=== PATIENT | female | born 1990 | race Caucasian/White ===

== ENCOUNTER 2017-12-19 13:27 | Inpatient (IN) | payer MEDICAID, OTHER ==
[2017-12-19 14:14] VITALS: BMI 34.3
[2017-12-19 14:40] LABS: SQUAMOUS EPITHIAL 11 /hpf (0-5); URINE BACTERIA OCC (<OCC); URINE BILIRUBIN NEGATIVE (NEGATIVE); URINE BLOOD MODERATE (NEGATIVE); URINE CLARITY CLOUDY (Clear); URINE COLOR AMBER (YELLOW); URINE GLUCOSE (UA) NEG (Normal); URINE HYALINE CAST 0-2 /hpf (0-2); URINE LEUKOCYTE ESTERASE LARGE Leu/uL (Negative); URINE PROTEIN 30 mg/dL (NEGATIVE)
[2017-12-19 14:47] LABS: URINE UROBILINOGEN 0.2 mg/dL (0.2-1.0)
[2017-12-19] MEDS ORDERED: Lactated Ringer's 1,000 ML IV SCH (15:00)
[2017-12-19] MEDS ORDERED: AMPicillin 2 GM in Sodium Chloride 0.9% 100 ML IVPB ONE (15:15)
[2017-12-19] MEDS ORDERED: Magnesium Sulfate 4 gm/100 ml 4 GM/100 ML BAG IV ONE (16:28)
--- NOTE | 2017-12-19 16:45 | OBHP ---
Datetime: 12/19/2017 14:05 IP Adm Impression: , intrauterine ; No Active Labor; Intact Membranes IP Admit Plan: Observation/Evaluation Admit Comment, IP Provider: 27yo IUP at 30w 6d c/o vb after she urinated this morning. Also , she said that she felt less FM this morning. No CTX; no SROM. PNC: Dr Patel - states that she was gong to do 3h GTT but decided not to do it today. She was told 2w ago about abnormal glucola PMH: sleeping issues PSH: gastric bypass/D_C POBGYN: G1 - TOP HPV + PSoH: Denies smoking; ETOH; drugs A: IUP at 30w VB by Hx - no evidence of VB PLAN: check UA; spoke to Dr Patel - check NST Add: 16:30pm...Dr verduzco admitted pt for threatened PTL Pelvic Type - PN: Adequate Extremities - PN: Normal Abdomen - PN: Normal Back - PN: Normal Lungs - PN: Normal Heart - PN: Normal Neurologic - PN: Normal HEENT - PN: Normal General - PN: Normal Membranes, Provider: Intact Comments, ACOG Physical Exam: Pelvic: vagina - white yellow curdy discharge CX closed Pool Provider: Negative IP Hx Assessment: The History has been Reviewed and is Current EGA AdmitDate IP: 30.6 IP Chief Complaint: Vaginal bleeding Dilatation, Provider: 0 Effacement, Provider: 0
[2017-12-19] MEDS: Betamethasone Soluspan 30 mg/5mL Inj Susp IM SCH (17:42)
[2017-12-19] MEDS: Magnesium Sul 40GM/1L SW 40 GM/1,000 ML ML IV ONE (18:14)
[2017-12-19 18:53] LABS: BASO % 0.3 % (0.0-2.0); EOS # 0.1 K/uL (0.0-0.7); EOS % 0.7 % (0.0-4.0); HEMOGLOBIN 10.9 g/dL (12.0-16.0); LYMPH # 2.2 K/uL (1.0-4.3); LYMPH % 21.1 % (20.0-40.0); MEAN CELL VOLUME 97.2 fl (81.0-99.0); MEAN CORPUSCULAR HEMOGLOBIN 32.4 pg (27.0-31.0); MEAN CORPUSCULAR HGB CONC 33.3 g/dL (33.0-37.0); MEAN PLATELET VOLUME 10.6 fl (7.2-11.7); MONO # 0.8 K/uL (0.0-0.8); MONO % 7.7 % (0.0-10.0); NEUT # 7.2 K/uL (1.8-7.0); NEUT % 70.2 % (50.0-75.0); NRBC % 0.1 % (0.0-0.0); RBC 3.38 Mil/uL (3.80-5.20); RED CELL DISTRIBUTION WIDTH 13.1 % (11.5-14.5); WHITE BLOOD COUNT 10.3 K/uL (4.8-10.8)
[2017-12-19] MEDS: AMPicillin 1 GM in Sodium Chloride 0.9% 100 ML IVPB SCH (21:13)
[2017-12-19] MEDS: TERCONAZOLE VAG SCH (21:41)
[2017-12-20 00:19] LABS: ALBUMIN 3.5 g/dL (3.5-5.0); ALT/SGPT 26 U/L (9-52); AST/SGOT 25 U/L (14-36); BILIRUBIN,DIRECT 0.2 mg/ml (0.0-0.4); BLOOD UREA NITROGEN 4 mg/dl (7-17); CALCIUM 8.2 mg/dL (8.4-10.2); GFR NON-AFRICAN AMERICAN > 60
[2017-12-20] MEDS: AMPicillin 1 GM in Sodium Chloride 0.9% 100 ML IVPB SCH ×4 (03:40→21:18)
[2017-12-20] MEDS: Lactated Ringer's 1,000 ML IV SCH ×2 (06:45→21:00)
[2017-12-20] MEDS: Magnesium Sul 40GM/1L SW 40 GM/1,000 ML ML IV ONE (11:34)
--- NOTE | 2017-12-20 13:24 | US ---
Date of service: 12/20/2017 PROCEDURE: HISTORY: labor COMPARISON: TECHNIQUE: FINDINGS: biophysical profile of 09/24. AIXA equal 17. Cephalic position. Anterior placenta. Cervical length 3 centimeters. anatomic survey not performed. Estimated gestational age of 29 weeks and 4 days based on the BPD. IMPRESSION: As above.
--- NOTE | 2017-12-20 16:20 | OBADHP ---
Datetime: 12/19/2017 14:05 Admit Comment, IP Provider: 27yo IUP at 30.6wks c/o vaginally bleeding that she noticed afte r urinating this AM. She endorses decreased FM this morning, but denied any contractions or loss of f luid. Patient was supposed to have 3h GTT done today for further evaluation of abnormal glucose, but states she was not feeling well. OBGYNhx: G1 - TOP; HPV + PMHx: sleeping issues Allergies: NKA Meds: PNV PSH: gastric bypass/D_C SocHx: Denies smoking, eTOH or elicit drugs PE: CV: s1s2 RRR Lungs: Cta b/l Abdomen: Gravid, BS + Pelvic: No vaginal bleeding noted; white yellow curdy discharge; cx closed Extremities: calves nontender, nonedematous AP: 27yo IUP at 30w 6d c/o vaginally bleeding _ decreased FM. -No evidence of vaginal bleeding with closed cervix on pelvic exam, but curdy, white/yellow disch arge noted likely due to yeast. -FU UA _ order Terazol 3. -Observe _ check NST. Add: 16:30pm...Pt admitted for threatened PTL as per Dr. Lagos -Magnesium, Celestone _ Ampicillin ordered. -Fasting _ postprandial accuchecks for AM (Dec 20). -Continue FHR monitoring. Case discussed with Dr. Cavazos Pelvic Type - PN: Adequate Extremities - PN: Normal Abdomen - PN: Normal Back - PN: Normal Lungs - PN: Normal Heart - PN: Normal Neurologic - PN: Normal HEENT - PN: Normal General - PN: Normal Membranes, Provider: Intact Comments, ACOG Physical Exam: Pelvic: vagina - white yellow curdy discharge CX closed Pool Provider: Negative IP Hx Assessment: The History has been Reviewed and is Current IP Chief Complaint: Vaginal bleeding Dilatation, Provider: 0 Effacement, Provider: 0 EGA AdmitDate IP: 30.6 IP Adm Impression: , intrauterine ; No Active Labor; Intact Membranes IP Admit Plan: Observation/Evaluation
--- NOTE | 2017-12-20 16:25 | OBPN ---
Datetime: 12/19/2017 14:05 IP Progress Impression Other: UTI IP Progress Impression: labor IP Progress Plan: Continue present management; Antibiotic therapy; Tocolysis Pool Provider: Negative Membranes, Provider: Intact Contraction Comments Provider: irregular Gestation - Est Wks by US: 31.0 IP Progress Note Comment: Was admitted last night afte UC regular and pt stating feeling UC pain 9/ 0 and placed on IV tocolysis and antibiotics since u/a was indicative of this Sterioids also given an d since hx of tachycardia EKG was done and briquette machine operator consult given. I spoke with briquette machine operator who will see her and had already noted EKG Will continue monitoring sugar levels and BPP done with CLM a nd normal results After steroids complete will lower Magnesium infussion rate Dilatation, Provider: 0 Effacement, Provider: 0
[2017-12-20] MEDS: Betamethasone Soluspan 30 mg/5mL Inj Susp IM SCH (17:40)
[2017-12-20] MEDS: TERCONAZOLE VAG SCH (22:55)
[2017-12-21] MEDS: AMPicillin 1 GM in Sodium Chloride 0.9% 100 ML IVPB SCH ×3 (03:30→15:28)
[2017-12-21] MEDS ORDERED: Magnesium Sul 40GM/1L SW 40 GM/1,000 ML ML IV ONE (09:18)
[2017-12-21] MEDS: Lactated Ringer's 1,000 ML IV SCH (09:29)
--- NOTE | 2017-12-21 11:44 | CP.PCM.CON ---
History of Present Illness - History of Present Illness History of Present Illness: THE PATIENT IS A 27 YEAR OLD FEMALE WHO IS 31 WEEKS ADMITTED 2 DAYS AGO AND WAS GIVEN IV TOCOLYSIS AND ANTIBIOTICS FOR UTERINE CONTRACTIONS. SHE HAS A HISTORY OF TACHYCARDIA AND SEES DR WHITAKER FOR THIS AND WAS GIVEN METOPROLOL WHICH SHE STOPPED TAKING. SHE STATES HE HAS ANXIETY AND WAS ALSO OVERWEIGHT AND HAD GASTRIC BYPASS SURGERY IN 2014. I WAS CALLED TO SEE HER FOR A RAPID HEART RATE AND CHEST PAIN. BUT, SHE DENIES CHEST PAIN TO ME AND STATES SHE HAD ONLY MILD SOB WHEN SHE LAYS ON HER LEFT SIDE AND SHE IS NOT SOB TODAY. SHE DENIES ANY OTHER SERIOUS MEDICAL PROBLEMS. Past Patient History - Past Medical History & Family History Past Medical History?: Yes - Past Social History Smoking Status: Never Smoked - CARDIAC Hx Cardiac Disorders: No - PULMONARY Hx Respiratory Disorders: No - NEUROLOGICAL Hx Neurological Disorder: No - HEENT Hx HEENT Problems: No - RENAL Hx Chronic Kidney Disease: No - ENDOCRINE/METABOLIC Hx Endocrine Disorders: No - HEMATOLOGICAL/ONCOLOGICAL Hx Blood Disorders: No - INTEGUMENTARY Hx Dermatological Problems: No - MUSCULOSKELETAL/RHEUMATOLOGICAL Hx Musculoskeletal Disorders: No Hx Falls: No - GASTROINTESTINAL Hx Gastrointestinal Disorders: No - GENITOURINARY/GYNECOLOGICAL Hx Genitourinary Disorders: No - PSYCHIATRIC Hx Psychophysiologic Disorder: No Hx Substance Use: No - SURGICAL HISTORY Hx Surgeries: Yes Hx Gastric Bypass Surgery: Yes - ANESTHESIA Hx Anesthesia: Yes Hx Anesthesia Reactions: No Hx Malignant Hyperthermia: No Meds Allergies/Adverse Reactions: Allergies Allergy/AdvReac Type Severity Reaction Status Date / Time No Known Allergies Allergy Verified 07/28/14 13:13 - Medications Medications: Current Medications Lactated Ringer's (Lactated Ringer's) 1,000 mls @ 75 mls/hr IV .[id number] [facility] Last Admin: 12/21/17 09:29 Dose: 75 mls/hr Ampicillin 1 gm/ Sodium (Chloride) 100 mls @ 100 mls/hr IVPB Q6 MIRANDA; Protocol Last Admin: 12/21/17 09:27 Dose: 100 mls/hr Magnesium Sulfate (Magnesium Sul 40gm/1l Sw) 40 gm in 1,000 mls @ 25 mls/hr IV .Q24H ONE Stop: 12/22/17 09:17 Last Admin: 12/21/17 09:52 Dose: 25 mls/hr Terconazole (Terazol 3) 1 applic VAG HS MIRANDA Stop: 12/21/17 22:01 Last Admin: 12/20/17 22:55 Dose: 1 applic Physical Exam - Respiratory Exam Respiratory Exam: Clear to Auscultation Bilateral - Cardiovascular Exam Cardiovascular Exam: REGULAR RHYTHM, +S1, +S2 - Extremities Exam Additional comments: NO SIGNIFICANT LE EDEMA - Additional Findings Additional findings: EKG SHOWED SINUS RHYTHM, NO ACUTE CHANGES HEART RATE IS 90 BEATS PER MINUTE THIS MORNING HEART RATE WAS 120 TO 150 ON PREVIOUS DAYS WHEN SHE CLAIMED SHE WAS ANXIOUS Results - Vital Signs Recent Vital Signs: Last Vital Signs Temp 98.4 F 12/21/17 09:31 Pulse 112 H 12/19/17 17:00 Resp 16 12/19/17 17:00 BP 117/71 12/19/17 17:00 Pulse Ox 100 12/19/17 17:00 - Labs Result Diagrams: 12/19/17 18:47 12/19/17 23:30 Labs: Laboratory Results - last 24 hr 12/19/17 12/20/17 12/20/17 17:06 16:17 20:43 POC Glucose (mg/dL) 90 Magnesium 6.1 H* RPR Nonreactive 12/20/17 12/21/17 12/21/17 21:25 06:55 08:30 POC Glucose (mg/dL) 118 H 103 Magnesium 4.1 H RPR 12/21/17 09:49 POC Glucose (mg/dL) 93 Magnesium RPR Assessment & Plan - Assessment and Plan (Free Text) Assessment: TACHYCARDIA HISTORY-MOST PROBABLY SINUS TACHYCARDIA FROM ANXIETY NO CHEST PAIN OR ACUTE CHANGES ON EKG 31 WEEKS WITH UTERINE CONTRACTIONS Plan: NO CARDIAC TREATMENT OR FURTHER WORK UP AT THIS TIME NOTE: I WAS GOING TO ORDER AN ECHOCARDIOGRAM BUT DR BULLARD DID NOT WANT HER GOING OFF THE LABOR AND DELIVERY FLOOR AND SHE ALSO STATES THAT SHE HAD AN ECHOCARDIOGRAM IN [address] Magen RODRIGUEZ IN 2017 THAT WAS NORMAL AND SHE WILL FOLLOW UP WITH HIM
--- NOTE | 2017-12-21 15:34 | OBPN ---
Datetime: 12/21/2017 15:28 IP Procedures Other: IV tocolysis, antibiotics and steroids IP Progress Impression Other: UTI/gest DM IP Progress Impression: labor IP Progress Plan: Continue present management Pool Provider: Negative Membranes, Provider: Intact FHR - Baseline A Provider: 150's Gestation - Est Wks by US: 31 wks 1 d IP Progress Note Comment: denied any pains now, was cleared by civil transportation engineer and had received steroid s and tocolysis was decreased and no UC VS stable and SVE done as above Will d/C tocolysis and if no UC then will D/C home tonight on PO antibiotics and pelvic and bed rest and follow up office 1 wk NICHD Accel Fetus A IP Provider: 10X10 NICHD Variability Prov Fetus A: Moderate 6-25bpm Dilatation, Provider: closed Effacement, Provider: none Station, Provider: H NICHD Decel Fetus A IP Provider: None
--- NOTE | 2017-12-21 15:40 | OBDCSUM ---
Datetime: 12/21/2017 15:34 Discharged to, Provider: Home Follow up at, Provider: Dr Patel Disch Instr Activity: Bedrest; May be up to bathroom; May be up for meals; May Shower Disch Instr Diet: Regular Discharge Instructions, Provider: Specific instructions as noted Discharge Diagnosis, Provider: Labor Follow up in weeks, Provider: 1 wk Contraception discussed, Prov: n/a Disch Activity Restrictions: No exercising; No lifting; No driving; Minimize walking; Minimize stair -climbing; No sexual activity; Nothing in vagina - Rozel, tampons, douche Discharge Comment, Provider: rx for Macrobid bid given and specific instructions given and to follow up in office and with Perinatologist Discharge Diagnosis Prov Other: gest DM; UTI
[2017-12-22 00:27] VITALS: BP 104/48; PULSE 110; RESP 20; TEMP 98.2; O2SAT 99
--- NOTE | 2017-12-22 11:45 | CARD ---
APPROVED REPORT Date of service: 12/20/2017 EKG Measurement Heart [id number] <Conclusion> Normal sinus rhythm Normal Electrocardiogram
== END 2017-12-21 20:26 | disposition home or self-care (01) | DRG 563 ==
LOC: H.EROB2 13:27 → H.L&D 16:27
PROVIDERS: ADMIT Specialist; ATTEND Specialist
DX: O60.03 Preterm labor without delivery, third trimester (principal); O99.413 Diseases of the circulatory system complicating pregnancy, third trimester; O46.93 Antepartum hemorrhage, unspecified, third trimester; O23.43 Unspecified infection of urinary tract in pregnancy, third trimester; O24.419 Gestational diabetes mellitus in pregnancy, unspecified control; O99.343 Other mental disorders complicating pregnancy, third trimester; O99.843 Bariatric surgery status complicating pregnancy, third trimester; Z3A.31 31 weeks gestation of pregnancy; R00.0 Tachycardia, unspecified; R07.9 Chest pain, unspecified; E66.3 Overweight; F41.9 Anxiety disorder, unspecified

== ENCOUNTER 2018-02-10 17:25 | Emergency (ER) | payer OTHER ==
[2018-02-10 23:17] VITALS: BP 96/71; PULSE 97; O2SAT 98
--- NOTE | 2018-02-11 08:34 | OBHP ---
Datetime: 02/10/2018 08:25 IP Adm Impression: Term, intrauterine ; No Active Labor; Intact Membranes IP Admit Plan: Observation/Evaluation; Discharge home Admit Comment, IP Provider: 27yo at 38wks GA c/o ctxs. No VB, LoF. Good FM. records reviewed. PMHx denies PSHx denies Meds PNV OBHx SocHx denies tob, etoh, drugs A : No evidence of labor at this time. FHT category I P : Disc plan with PMD. Pt discharge home with labor precautions Pelvic Type - PN: Adequate Extremities - PN: Normal Abdomen - PN: Normal Back - PN: Normal Breast - PN: Normal Lungs - PN: Normal Heart - PN: Normal Thyroid - PN: Normal Neurologic - PN: Normal HEENT - PN: Normal General - PN: Normal Membranes, Provider: Intact Contraction Comments Provider: irritability IP Hx Assessment: The History has been Reviewed and is Current EGA AdmitDate IP: 38.3 Vital Signs Provider: Reviewed; Within Normal Limits IP Chief Complaint: Uterine contractions Dilatation, Provider: 0 Effacement, Provider: 50 Station, Provider: -3 Genitourinary Exam: Normal DTRs - PN: Normal Datetime: 12/21/2017 15:28 FHR - Baseline A Provider: 150's Gestation - Est Wks by US: 31 wks 1 d Pool Provider: Negative NICHD Variability Prov Fetus A: Moderate 6-25bpm NICHD Accel Fetus A IP Provider: 10X10 NICHD Decel Fetus A IP Provider: None Datetime: 12/19/2017 14:05 IP Indication for Induction: Not Applicable
== END 2018-02-10 18:55 | disposition home or self-care (01) ==
LOC: H.EROB2 17:25
DX: O26.93 Pregnancy related conditions, unspecified, third trimester (principal); R10.2 Pelvic and perineal pain; O47.1 False labor at or after 37 completed weeks of gestation; Z3A.38 38 weeks gestation of pregnancy

== ENCOUNTER 2018-02-16 06:44 | Inpatient (IN) | payer OTHER ==
[2018-02-16 07:37] VITALS: BMI 35.7
--- NOTE | 2018-02-16 08:03 | OBADHP ---
Datetime: 02/16/2018 07:54 Admit Comment, IP Provider: GBS neg Admit to l/D discussed plan and agreed Discussed benefits vs ris ks of vaginal delievery vs C/S in full detail. Extremities - PN: Normal Back - PN: Not Done Breast - PN: Not Done Lungs - PN: Normal Thyroid - PN: Normal Neurologic - PN: Normal HEENT - PN: Normal General - PN: Normal Presentation-Admit: Cephalic FHR - Baseline A Provider: 150 Membranes, Provider: Ruptured Contraction Comments Provider: q2-3 min Comments, ACOG Physical Exam: Abd gravid NT fundus at term, ext no calf tenderness Gestation - Est Wks by US: 39.0 Pool Provider: Negative IP Hx Assessment: The History has been Reviewed and is Current IP Chief Complaint: Uterine contractions; Vaginal bleeding NICHD Variability Prov Fetus A: Moderate 6-25bpm NICHD Accel Fetus A IP Provider: 10X10 NICHD Decel Fetus A IP Provider: None Dilatation, Provider: 3cm Effacement, Provider: 80 Station, Provider: -3 DTRs - PN: Normal EGA AdmitDate IP: 39.2 IP Adm Impression: Term, intrauterine ; Active labor IP Admit Plan: Admit to unit; Initiate labor protocol Datetime: 02/10/2018 08:25 Pelvic Type - PN: Adequate Abdomen - PN: Normal Heart - PN: Normal Vital Signs Provider: Reviewed; Within Normal Limits Genitourinary Exam: Normal
[2018-02-16 08:41] LABS: BASO % 0.5 % (0.0-2.0); EOS % 0.2 % (0.0-4.0); HEMOGLOBIN 11.5 g/dL (12.0-16.0); LYMPH # 1.6 K/uL (1.0-4.3); LYMPH % 15.9 % (20.0-40.0); MEAN CELL VOLUME 97.3 fl (81.0-99.0); MEAN CORPUSCULAR HEMOGLOBIN 32.5 pg (27.0-31.0); MEAN CORPUSCULAR HGB CONC 33.5 g/dL (33.0-37.0); MEAN PLATELET VOLUME 11.3 fl (7.2-11.7); MONO # 0.5 K/uL (0.0-0.8); MONO % 5.5 % (0.0-10.0); NEUT # 7.7 K/uL (1.8-7.0); NEUT % 77.9 % (50.0-75.0); RBC 3.53 Mil/uL (3.80-5.20); RED CELL DISTRIBUTION WIDTH 13.8 % (11.5-14.5); WHITE BLOOD COUNT 9.8 K/uL (4.8-10.8)
[2018-02-16] MEDS ORDERED: Lactated Ringer's 1,000 ML IV ONE (08:43)
[2018-02-16] MEDS ORDERED: Lactated Ringer's 1,000 ML IV SCH (08:45)
[2018-02-16 08:52] LABS: ALBUMIN 3.6 g/dL (3.5-5.0); ALT/SGPT 14 U/L (9-52); AST/SGOT 27 U/L (14-36); BILIRUBIN,DIRECT 0.2 mg/ml (0.0-0.4); BLOOD UREA NITROGEN 9 mg/dl (7-17); CALCIUM 9.5 mg/dL (8.4-10.2); GFR NON-AFRICAN AMERICAN > 60
[2018-02-16] MEDS ORDERED: Oxytocin 30 UNIT 30 UNITS/500 ML BAG IV ONE (09:53)
[2018-02-16] MEDS ORDERED: Fentanyl/Bupivacaine HCl 250 ML EPI ONE (12:12)
[2018-02-16] MEDS ORDERED: Lidocaine 1% Inj (20ml) ONE (22:16)
[2018-02-16] MEDS ORDERED: Benzocaine/Menthol SPRAY TOP PRN (23:42)
[2018-02-16] MEDS ORDERED: Oxytocin 30 UNITS in Sodium Chloride 0.9% 500 ML IV ONE ×2 (23:42→23:45)
--- NOTE | 2018-02-16 23:53 | OBDS ---
DELIVERY PERSONNEL Delivery Doctor: Shankar Patel MD Station Mechanic Apprentice: Agnes Cedeno RN Anesthetist: lisa MATERNAL INFORMATION Delivery Anesthesia: Epidural Medications in Delivery: pitocin Estimated Blood Loss (ml): 250cc Maternal Complications: Other Other Maternal Complications: gst DM Provider Comments: Delivered a living baby boy appears term cried spiontaneously nuchal cord x1 loos e 9/9, AF clear Placenta complete and intact. Uterus contracted well Episiotomy repaired as abo ve without any complications Rectal done no defects. Tolerated procedure well No complicatons LABOR SUMMARY EDC: 02/21/2018 00:00 No. Babies in Womb: 1 Labor Anesthesia: Epidural LABOR INFORMATION Reason for Induction: Not Applicable Onset of Labor: 02/16/2018 04:30 Oxytocin: Augmentation Group B Beta Strep: Negative Steroids Given: > 24 Hours before Delivery MEMBRANES Membranes Rupture Method: Spontaneous Rupture of Membranes: 02/16/2018 15:34 Amniotic Fluid Color: Clear Amniotic Fluid Amount: Moderate Amniotic Fluid Odor: Normal VAGINAL DELIVERY Episiotomy: Median Laceration Extension: First Degree Laceration Type: Perineal Laceration Repair: Yes Laceration Repair Note: episiotomy repaired with 2-0 chromic cont and lock for vagina and continousl y for perineum No complications Sponge Count Correct: Yes Sharps Count Correct: Yes Count Comment: count correct and verified by RN CSECTION DELIVERY Primary Indication: N/A CSection Incision: N/A Uterine Closure: N/A BABY A INFORMATION Forceps: N/A Shoulder Dystocia : No PRESENTATION/POSITION BABY A Presentation: Cephalic Cephalic Presentation: Vertex Vertex Position: Left Occipital Anterior
[2018-02-17] MEDS ORDERED: Benzocaine/Menthol SPRAY ONE (03:36)
[2018-02-17 06:20] LABS: BASO % 0.1 % (0.0-2.0); LYMPH # 1.5 K/uL (1.0-4.3); LYMPH % 8.4 % (20.0-40.0); MEAN CELL VOLUME 99.2 fl (81.0-99.0); MEAN CORPUSCULAR HEMOGLOBIN 32.6 pg (27.0-31.0); MEAN CORPUSCULAR HGB CONC 32.8 g/dL (33.0-37.0); MONO # 1.2 K/uL (0.0-0.8); MONO % 7.1 % (0.0-10.0); NEUT # 14.7 K/uL (1.8-7.0); NEUT % 84.4 % (50.0-75.0); NRBC % 0.1 % (0.0-0.0); PLATELET COUNT 155 K/uL (130-400); RBC 2.76 Mil/uL (3.80-5.20); RED CELL DISTRIBUTION WIDTH 14.2 % (11.5-14.5); WHITE BLOOD COUNT 17.4 K/uL (4.8-10.8)
[2018-02-17 10:29] LABS: BANDS 2 % (0-2); LYMPHOCYTE 6 % (20-50); MONOCYTE 2 % (0-10); NEUTROPHIL 90 % (42-75); TOTAL CELLS COUNTED 100
[2018-02-17 10:32] LABS: PLATELET ESTIMATE NORMAL (NORMAL)
[2018-02-17 10:33] LABS: HYPOCHROMIC SLIGHT; LARGE PLATELETS PRESENT
[2018-02-17] MEDS: Oxycodone/Acetaminophen 5/325 mg Tab PO PRN (14:36)
[2018-02-18] MEDS: Oxycodone/Acetaminophen 5/325 mg Tab PO PRN (01:06)
[2018-02-18] MEDS ORDERED: Oxycodone/Acetaminophen 5/325 mg Tab PO PRN (04:55)
[2018-02-18] MEDS ORDERED: Benzocaine/Menthol SPRAY TOP PRN (04:55)
--- NOTE | 2018-02-18 07:49 | OBPPN ---
Datetime: 02/18/2018 07:45 PP Pain Prov: Within normal limits PP Pain Prov comment: No SOB, chest or leg pains PP Nausea Prov: Denies PP Flatus Prov: Yes PP Nausea Prov comment: Voiding well PP Breasts Prov: Normal PP Lungs Prov: Normal PP Abdomen/Uterus Prov: Abnormal PP Lochia Prov: Normal PP Vulva/Perineum Prov: Abnormal PP CVA Tenderness Prov: Normal PP Extremities Prov: Normal PP C/S Incision Prov: Not Applicable PP Progress Prov: Normal PP Comments Phys Exam Prov: breast ne, breast feeding; Abd soft ND, fundus firm below umb. Perineum repaired Ext no calf tenderness PP Impression Prov: Normal progression PP Plan Prov: Discharge PP Progress Note Prov: D/C home with instructions adn folllow up office 4-6 wks IP PP Procedures: None Vital Signs Provider PP: Reviewed
--- NOTE | 2018-02-18 07:51 | OBDCSUM ---
Datetime: 02/18/2018 07:49 Discharged to, Provider: Home Follow up at, Provider: Dr Patel Disch Instr Activity: Bedrest; May be up to bathroom; May be up for meals; May Shower Disch Instr Diet: Regular Discharge Instructions, Provider: Routine instructions given Discharge Diagnosis, Provider: Term Delivered Follow up in weeks, Provider: 4-6 wks Disch Referrals: None Contraception discussed, Prov: Yes Disch Activity Restrictions: No exercising; No lifting; No driving; Minimize walking; Minimize stair -climbing; No sexual activity; Nothing in vagina - Forsan, tampons, douche Discharge Comment, Provider: Instructions given and continue sugar monitoring Discharge Diagnosis Prov Other: gest DM; hx of gastric bypass Contraception after Delivery: Undecided
[2018-02-18 16:19] VITALS: BP 123/70; PULSE 93; RESP 20; TEMP 98.3; O2SAT 98
== END 2018-02-18 12:05 | disposition home or self-care (01) | DRG 373 ==
LOC: H.EROB2 06:44 → H.EROB 07:18 → H.EROB2 08:02 → H.L&D 08:06 → H.OB/GYN 02-17 02:00
PROVIDERS: ADMIT Specialist; ATTEND Specialist
PROC: 10E0XZZ Delivery of Products of Conception, External Approach (ICD-10-PCS; principal; 2018-02-16)
PROC: 0W8NXZZ Division of Female Perineum, External Approach (ICD-10-PCS; 2018-02-16)
PROC: 0HQ9XZZ Repair Perineum Skin, External Approach (ICD-10-PCS; 2018-02-16)
PROC: 4A1HXCZ Monitoring of Products of Conception, Cardiac Rate, External Approach (ICD-10-PCS; 2018-02-16)
DX: O69.81X0 Labor and delivery complicated by cord around neck, without compression, not applicable or unspecified (principal); O70.0 First degree perineal laceration during delivery; O99.844 Bariatric surgery status complicating childbirth; Z37.0 Single live birth; Z3A.39 39 weeks gestation of pregnancy